=== PATIENT | female | born 1985 | race Caucasian/White ===

== ENCOUNTER 2018-02-09 08:25 | Inpatient (IN) | payer OTHER ==
[~2018-02-09] VITALS: Ht 170.2 cm; Wt 102.5 kg
[~2018-02-09 08:25] MED LIST: IBUPROFEN800 M1 PO; PRENATAL TABLE1 EAC2 PO
[2018-02-09 09:32] LABS: ABSOLUTE BASOPHIL COUNT 0 /CUMM (0.0-0.2); ABSOLUTE EOSINOPHIL COUNT 0.1 /CUMM (0.0-0.7); ABSOLUTE LYMPH COUNT 1.2 /CUMM (1.2-3.4); ABSOLUTE MONOCYTE COUNT 0.6 /CUMM (0.10-0.60); BASOPHIL % 0.1 % (0.0-2.0); EOSINOPHIL % 1.1 % (0-5); GRANULOCYTE % 80.3 % (42.2-75.2); HEMATOCRIT 37.1 % (37-47); MEAN CORPUSCULAR HGB CONC 34.8 G/DL (33.0-37.0); MEAN CORPUSCULAR VOLUME 89.1 FL (81.0-99.0); MEAN PLATELET VOLUME 10.5 FL (7.4-10.4); PLATELET COUNT 129 /CUMM (130-400); RBC DISTRIBUTION WIDTH 14.1 % (11.5-14.5); RED BLOOD CELL CT 4.16 /CUMM (4.20-5.40); WHITE BLOOD CELL COUNT 9.9 /CUMM (4.8-10.8)
--- NOTE | 2018-02-09 18:59 | History & Physical ---
General Information and HPI MD Statement: I have seen and personally examined GRAHAM CLEMONS and documented this H&P. The patient is a 32 year old female at 41[] weeks and [1] days gestation who presented with a chief complaint of [overdue , for labor induction.]. Source of Information: patient, record Exam Limitations: no limitations History of Present Illness: 32yo at 41w1d, admitted for Pitocin IOL for postdates. She has been 2cm for the past 4 weeks, and has had no UCs, LOF, or VB. Baby has been active. Last EFW at 38w showed baby in 38th percentile. Her pelvis is adequate; her first delivery 2 years ago was a vacuum extraction for a 71/2lb baby for maternal exhaustion after 36 hours of labor. Allergies/Medications Allergies: Coded Allergies: NO KNOWN ALLERGIES (01/08/16) NONE KNOWN PER ANTIBIOTIC ORDER SHEET OF 02/27/15 ([facility]) Home Med list Ibuprofen 800 MG TABLET 800 MG PO Q6P PRN PAIN SCALE 4-6 (MODERATE) Vit No.130/Iron/FA ( Tablet) 1 EACH TABLET 1 TAB PO DAILY (Reported) Compliance With Home Meds: GOOD Past History crystal mounter History : 5 Para: 1 Last Menstrual Period: 04-27-17 Estimated Delivery Date: 02-01-18 Past crystal mounter History: none, HTN- associated Past Pregnancies Past Pregnancies: Date of Delivery: 01-14-16 Gestational Age: 39 Length of Labor: 36h Weight: 7lb2oz Type of Delivery: vaginal Anesthesia: epidural Place of Delivery: [facility] Complications: vacuum applied at low station for maternal exhaustion Medical History Blood Transfusion Hx: No Neurological: NONE, migraine EENT: NONE Cardiovascular: NONE Respiratory: NONE Gastrointestinal: NONE Hepatic: NONE Renal: NONE Musculoskeletal: NONE Psychiatric: NONE Endocrine: NONE Blood Disorders: NONE Cancer(s): NONE SHEET TESTER/Reproductive: HPV, miscarriage, ABNL PAP 2011. S/P LEEP, PCOS Surgical History Pertinent Surgical History: D AND C, LEEP, cervical conization Past Family/Social History Psychosocial History Where do you live? Home Who Do You Live With? spouse, child Primary Language: Irish Smoking Status: Never Smoked ETOH Use: denies use Illicit Drug Use: denies illicit drug use Living Will? unknown Power of Gas Station Cashier/HCP? unknown Employment History Employment Employed Profession/Employer Physical Therapy Review of Systems Review of Systems: All systems reviewed in detail and all are negative. Review of Systems Date of LMP: 04/27/17 Post Menopausal: No Mammogram Testing Status: Test never done Date of Last Pap Smear: 06/28/17 Colonoscopy Testing Status: Test never done Exam & Diagnostic Data Last 24 Hrs of Vital Signs/I&O Intake & Output 02/09 1600 02/09 0800 02/09 0000 Intake Total Output Total Balance Patient 226 lb Weight Obstetric Exam Wgt Gained During : 15 Pelvimetry: adequate Dilation (cm): 2 Effacement (%): 70 Station: -2 Membranes: intact Fluid: unknown Fundal Height (cm): 38 Multiple Gestation? No Contractions: mild every 5-7 min. #1 - FHR Baseline: 145 Category: 1 Estimated Weight: 3500g Presentation: VTX/LOT Patient for Induction? Yes Reeves Score Reeves Score Response Value Cervix Position: anterior 2 Cervix Consistency: soft 2 Cervix Effacement: 60-70% 2 Cervix Dilation: 1-2 cm 1 Cervix Station: -2 1 Total 8 Physical Exam: A + OX3, in NAD Mouth/lips - moist, pink Neck - supple Breasts - no mass, no tenderness Lungs - CTA Cor - RRR Abd - soft, NT Fundus - soft, NT Back - no CVAT Perineum - dry Extr - 1+ edema bilat, benign, symmetrical Neuro - intact grossly Labs Blood Type & Rh: A+ Antibody Screen: neg Hct/Hgb & Platelets #1: 12.6/39.4%, 208K Hct/Hgb & Platelets #2: 11.6/37.2%, 155K Rubella: Immune VDRL #1: neg VDRL #2: neg HbsAg: NR HIV #1: NR HIV #2 NR 1 Hr P Group B Strep: neg Initial Ultrasound: 06-28-17, 8w6d, single viable IUP Anatomy Ultrasound: 18, 21w5d, normal anatomy and growth normal KRYSTAL and C.L. Ultrasound for EFW: 36w1d, 41%, KRYSTAL 12 37w6d, 38% Genetic Testing: NT and Counsyl negative, declined MSAFP Assessment/Plan As Ranked By This Provider Problem List: 1. Post term , 41 weeks 2. Previous baby delivered by vacuum extraction Core Measures Venous Thromboembolism VTE Risk Factors / No Mechanical VTE Prophylaxis d/t Early Ambulation No VTE Pharm Prophylaxis d/t LowRisk-No Interven Req'd Comment: epidural anticipated Attending MD Review Statement Attending Statement Attending MD Statement: examined this patient, discussed with family, reviewed EMR data (avail), discussed w/nursing
--- NOTE | 2018-02-09 19:04 | PN- OBGYN ---
Surgical Brief Attending Note Brief Attending Note: Labor Progress at 3:00pm - cervix unchanged, UCs mild every 3 min., FHR Cat.1 AROM - clear fluid, on 2 mu Pitocin at 5:30pm - cervix 4cm/90%, UC q2-4 mod., FHR BL 145 Cat. 1, pt requesting epidural at 8:15pm - cervix 8-9cm/100%, VTX +1/LOT, UCs q3 min., firm, on 4mu Pitocin, FHR BL 150, Category 1, + accels, 1 prolonged decel for 1-2 min with fast recovery patient comfortable with epidural at 10:15pm - cervix rim, +1 station, UCs q4-5, FHR Cat. 1, variable decel. occasional, pt sleeping, allowed to labor down at 12:00 - fully +2, urge to push
--- NOTE | 2018-02-10 01:42 | Labor & Delivery Summary ---
Delivery Summary Vaginal Delivery: Vaginal: Episiotomy/Lacerations: Episiotomy/Lacerations: intact Placenta: Placenta: spontanteous, normal, 3 vessel, nuchal cord (x_) (tight nuchal cord X1 double cl) Anesthesia: block Baby's Weight: 9sz93my Apgars - 1 Min: 9 Apgars - 5 Min: 9 Additional Comments: Multipara was delivered, after Pitocin IOL, of a single viable female infant "Scarlet", 9,9, from the LOP position over an intact perineum without laceration. Tight nuchal cord X1 clamped and cut on the perineum. AF clear, 3VC, placenta delivered spontaneously and intact. Labia, perineum, vaginal han, cervix, rectal sphincter and mucosa intact. Vagina and NATALIA cleared of blood and clots, no sponges left. Fundus firm, good hemostasis, EBL 150cc. Needle and sponge counts correct. Patient tolerated delivery well.
[2018-02-11] MEDS ORDERED: IBUPROFEN800 M1 PO (08:31)
[2018-02-11 09:06] LABS: ABSOLUTE BASOPHIL COUNT 0 /CUMM (0.0-0.2); ABSOLUTE EOSINOPHIL COUNT 0.2 /CUMM (0.0-0.7); ABSOLUTE GRANULOCYTE CT 6.7 /CUMM (1.4-6.5); ABSOLUTE LYMPH COUNT 1.9 /CUMM (1.2-3.4); ABSOLUTE MONOCYTE COUNT 0.7 /CUMM (0.10-0.60); BASOPHIL % 0.4 % (0.0-2.0); EOSINOPHIL % 1.6 % (0-5); HEMATOCRIT 37.6 % (37-47); MEAN CORPUSCULAR HGB 30.9 PG (27.0-31.0); MEAN CORPUSCULAR HGB CONC 33.7 G/DL (33.0-37.0); MEAN CORPUSCULAR VOLUME 91.7 FL (81.0-99.0); MEAN PLATELET VOLUME 10.9 FL (7.4-10.4); PLATELET COUNT 122 /CUMM (130-400); RBC DISTRIBUTION WIDTH 14.7 % (11.5-14.5); WHITE BLOOD CELL COUNT 9.5 /CUMM (4.8-10.8)
--- NOTE | 2018-02-11 10:04 | PN- OBGYN ---
Surgical Brief Attending Note Brief Attending Note: PPD#1 pt is resting in bed, no complaints, tolerate diet, void without difficulties, ambulating well PE: VSS CV RRR Lungs CTA B/L Abdomen: soft, nontender, uterus firm, fundus below umbilicus. lochia mild Ext: DCT (-) A/P: 32 yo, s/p , PPD#1 1. encourage ambulation and 2. pt request to be discharged home, discharge instructuions given, f/u in office in 2 wks and 6 wks
== END 2018-02-11 10:55 | DRG 775 ==
LOC: GNO 08:25
PROVIDERS: Obstetrics & Gynecology
PROC: 10E0XZZ Delivery of Products of Conception, External Approach (ICD-10-PCS; principal; 2018-02-10)
DX: O69.1XX0 Labor and delivery complicated by cord around neck, with compression, not applicable or unspecified (principal); Z3A.41 41 weeks gestation of pregnancy; Z37.0 Single live birth
CPT/HCPCS: GNOP; GNOS; 80307; 81001; 87086; J7120